=== PATIENT | female | born 1930 | race Hispanic/Latino ===

== ENCOUNTER 2017-08-01 09:38 | Emergency (ER) | payer MEDICARE ==
[~2017-08-01 09:38] MED LIST: AMLO10TA2 PO; BENA10TA3 PO; SERT25TA5 PO; TERI2.4P SQ
[2017-08-01] MEDS ORDERED: MORPHINE SULFATE 8 MG/ML VIAL ONE (09:58)
[2017-08-01 10:19] LABS: BASOPHILS % (AUTO) 0.9 % (0.0-5.0); EOSINOPHILS % (AUTO) 0.9 % (0.0-8.0); HEMATOCRIT 39.5 % (36-48); LYMPHOCYTES % (AUTO) 23.5 % (21.0-51.0); MEAN CORPUSCULAR HEMOGLOBIN 29.4 pg (27.0-33.0); MEAN CORPUSCULAR HGB CONC 33.6 g/dL (32.0-36.0); MEAN CORPUSCULAR VOLUME 87.7 fL (79-99); MONOCYTES % (AUTO) 10.8 % (3.0-13.0); NEUTROPHILS % (AUTO) 63.9 % (40.0-77.0); PLATELET COUNT (AUTO) 176 K/uL (130-400); RED CELL DISTRIBUTION WIDTH 15.8 % (11.0-15.5); WHITE BLOOD COUNT (AUTO) 6.9 K/uL (4.8-10.8)
[2017-08-01 10:26] LABS: POTASSIUM 3.8 mmol/L (3.5-5.1)
[2017-08-01 10:29] LABS: INR 0.97 (0.85-1.15); PARTIAL THROMBOPLASTIN TIME 25.9 SEC (26.3-35.5); PROTHROMBIN TIME 10.2 SEC (9.6-11.6)
== END 2017-08-01 12:43 | disposition home or self-care (01) ==
LOC: EDH 09:38
DX: M25.552 Pain in left hip (principal); M25.562 Pain in left knee; I10 Essential (primary) hypertension; M81.0 Age-related osteoporosis without current pathological fracture; R79.1 Abnormal coagulation profile; Z95.0 Presence of cardiac pacemaker; Z88.6 Allergy status to analgesic agent; W18.39XA Other fall on same level, initial encounter; Y93.01 Activity, walking, marching and hiking; Y92.89 Other specified places as the place of occurrence of the external cause; Y99.8 Other external cause status
CPT/HCPCS: 36415; 70450; 72192; 73562; 80048; 85025; 85610; 85730; 93005; 96372; 99285; J2270

== ENCOUNTER 2017-08-04 16:08 | Emergency (ER) | payer MEDICARE | END 2017-08-04 20:16 | disposition home or self-care (01) | LOC: EDH 16:08 | DX: R22.1 Localized swelling, mass and lump, neck (principal); M54.2 Cervicalgia; I10 Essential (primary) hypertension; M81.0 Age-related osteoporosis without current pathological fracture; Z88.6 Allergy status to analgesic agent | CPT/HCPCS: 72125; 76536 ==